=== PATIENT | female | born 1945 | race Caucasian/White ===

== ENCOUNTER 2016-08-16 10:24 | Outpatient (CLI) | payer BC | END 2016-08-16 18:57 | disposition home or self-care (01) | LOC: SMA 10:24 | PROVIDERS: ATTEND Physician Assistant Medical | DX: Z12.31 Encounter for screening mammogram for malignant neoplasm of breast (principal) | CPT/HCPCS: G0202 ==

== ENCOUNTER 2017-08-21 10:20 | Outpatient (CLI) | payer BC | END 2017-08-21 20:10 | disposition home or self-care (01) | LOC: SMA 10:20 | PROVIDERS: ATTEND Family Medicine | DX: Z12.31 Encounter for screening mammogram for malignant neoplasm of breast (principal) | CPT/HCPCS: 77067 ==

== ENCOUNTER 2018-09-11 10:30 | Outpatient (CLI) | payer BC | END 2018-09-11 20:53 | disposition home or self-care (01) | LOC: SMA 10:30 | PROVIDERS: ATTEND Family Medicine | DX: Z12.31 Encounter for screening mammogram for malignant neoplasm of breast (principal) | CPT/HCPCS: 77067 ==

== ENCOUNTER 2019-10-19 12:24 | Outpatient (CLI) | payer BC | END 2019-10-19 20:27 | disposition home or self-care (01) | LOC: SMA 12:24 | PROVIDERS: ATTEND Family Medicine | DX: Z12.31 Encounter for screening mammogram for malignant neoplasm of breast (principal) | CPT/HCPCS: 77067 ==